=== PATIENT | male | born 1975 | race Caucasian/White ===

== ENCOUNTER 2020-04-05 07:20 | Inpatient (IN) | payer OTHER ==
[~2020-04-05] VITALS: Ht 177.8 cm; Wt 113.4 kg
--- NOTE | 2020-04-05 07:46 | NUR ---
SE RECIBE PACIENTE MASCULINO DE 44 ANOS DE EDAD ALERTA Y ORIENTADO AMBULNADO CON QUEJA PRINCIPAL DE MAL ESTAR GENERALIZADO, NAUSEAS Y VOMITOS. SE ANGIE SIGNOS VITALES Y SE UBICA EN AREA INDICADAS
--- NOTE | 2020-04-05 08:49 | NUR ---
SE RECIBE PACIENTE ALERTA Y ORIENTADO EN NIDIA BRENT ESFERAS. MS CON ORIENTA A PACIENTE SOBRE PROCEDIMIENTO Y TX, REFIERE ENTENDER. SE EXTRAE MUESTRAS DE LABORATORIO CON MEDIDAS ASEPTICAS Y SE ADMINISTRA MEDICAMENTOS NINA ORDEN MEDICA.
--- NOTE | 2020-04-05 15:28 | NUR ---
PTE ALERTA Y ORIENTADO X 3 ESFERAS EN MARTHA CON BARANDAS ELEVADAS,SIN FAMILIAR AL MOMENTO DE LA STUART.AREA DE VENOPUNCION PATENTE Y KENZIE DE EDEMA,CON FLUIDOS DE MANTENIMIENTO BAJANDO SIN DIFICULTAD,KENZIE DE DOLOR AL MOMENTO Y PENDIENTE A RE-EVALUACION.
--- NOTE | 2020-04-05 18:01 | NUR ---
SE ORIENTA PTE SOBRE INSERCION DE NGT Y REFIERE ENTENDER.SE REALIZA PROCEDMIENTO EN STORM RT #16,CON EGRESO SANGUINOLENTO Y COFFE GROUND CON 100ML.PTE TOLERA.
[2020-04-09] MEDS ORDERED: INTESTINEX680 M1 PO (10:57)
[2020-04-09] MEDS ORDERED: PEPCID AC20 MG PO (10:58)
== END 2020-04-10 14:11 | disposition home or self-care (01) | DRG 390 ==
LOC: ER 07:20 → SURH 17:39 → SEC-K 17:39 → SURH 04-08 02:17
PROVIDERS: ADMIT Surgery; ATTEND Surgery
PROC: BW40ZZZ Ultrasonography of Abdomen (ICD-10-PCS; principal; 2020-04-05)
PROC: BW21ZZZ Computerized Tomography (CT Scan) of Abdomen and Pelvis (ICD-10-PCS; 2020-04-05)
PROC: BW21YZZ Computerized Tomography (CT Scan) of Abdomen and Pelvis using Other Contrast (ICD-10-PCS; 2020-04-07)
DX: K56.690 Other partial intestinal obstruction (principal); E86.0 Dehydration; K29.60 Other gastritis without bleeding; Z20.828 Contact with and (suspected) exposure to other viral communicable diseases